=== PATIENT | female | born 1945 | race African-American/Black ===

== ENCOUNTER 2018-05-23 07:45 | Emergency (ER) | payer BC ==
[2018-05-23] MEDS ORDERED: HYDROcodone/Acetaminophen 10/325 mg Tablet ONE (09:57)
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
== END 2018-05-23 11:10 | disposition home or self-care (01) ==
LOC: ERS 07:45
DX: S22.019A Unspecified fracture of first thoracic vertebra, initial encounter for closed fracture (principal); S22.029A Unspecified fracture of second thoracic vertebra, initial encounter for closed fracture; I10 Essential (primary) hypertension; E11.9 Type 2 diabetes mellitus without complications; V89.2XXA Person injured in unspecified motor-vehicle accident, traffic, initial encounter
CPT/HCPCS: 71046; 72040; 72072; 72100; 72125